=== PATIENT | male | born 1980 | race Caucasian/White ===

== ENCOUNTER 2024-01-17 10:46 | Emergency (ER) | payer OTHER ==
[~2024-01-17] VITALS: Ht 175.3 cm; Wt 81.6 kg
[2024-01-17] MEDS ORDERED: FLUORESCEIN SODIUM 1 MG STRIP ONE (11:07)
[2024-01-17] MEDS ORDERED: TETRACAINE HCL 0.5% OPHT DROP 2 ML BOTTLE ONE (11:10)
[2024-01-17] MEDS: FLUORESCEIN SODIUM 1 MG STRIP OP ONE (11:42)
[2024-01-17] MEDS: TETRACAINE HCL 0.5% OPHT DROP 2 ML BOTTLE OP ONE (11:42)
[2024-01-17] MEDS ORDERED: TDAP DIPH,PERTUSS,TET VAC/PF 0.5 ML DISP.SYRIN IM ONE (11:44)
[2024-01-17] MEDS: TDAP DIPH,PERTUSS,TET VAC/PF 0.5 ML DISP.SYRIN IM ONE (11:47)
[2024-01-17] MEDS ORDERED: CIPR5DRO EACHEYE (12:58)
[2024-01-17] MEDS ORDERED: HYDR-3980 PO (12:58)
[2024-01-17] MEDS: GENTAMICIN SULFATE 0.1% OINT 15 GM TUBE TP ONE (13:50)
[2024-01-17 13:51] VITALS: BP 141/97; O2SAT 98
== END 2024-01-17 13:52 | disposition home or self-care (01) ==
LOC: ER 10:46
DX: S05.02XA Injury of conjunctiva and corneal abrasion without foreign body, left eye, initial encounter (principal); M79.5 Residual foreign body in soft tissue; X58.XXXA Exposure to other specified factors, initial encounter; Y93.89 Activity, other specified; Y92.89 Other specified places as the place of occurrence of the external cause; Y99.8 Other external cause status
CPT/HCPCS: 90715; A4606; A4663